=== PATIENT | female | born 1970 | race Caucasian/White ===

== ENCOUNTER 2019-05-24 15:35 | Inpatient (IN) | payer MEDICAID ==
[~2019-05-24] VITALS: Ht 157.5 cm; Wt 86.6 kg
[2019-05-24 15:35] VITALS: BP_SYST 239
--- NOTE | 2019-05-24 15:35 | NUR ---
BROUGHT BACK TO BED #2 AND TRIAGED. REPORT GIVEN TO RADHA
--- NOTE | 2019-05-24 16:00 | NUR ---
ER Dr. Thomas at bedside examining patient.
[2019-05-24] MEDS ORDERED: MORPHINE 4 MG/ML INJ. SYRINGE IVP ONE ×2 (16:15→18:15)
[2019-05-24] MEDS ORDERED: DIPHENHYDRAMINE INJ 50 MG/ML VIAL IVP ONE (16:15)
[2019-05-24 16:27] LABS: BASOPHILS % (AUTO) 0.2 % (0.0-2.0); EOSINOPHILS # (AUTO) 0.1 K/uL (0.0-0.4); HEMOGLOBIN 17.1 g/dL (12.0-16.0); MONOCYTES # (AUTO) 0.4 K/uL (0.0-1.0)
[2019-05-24 16:33] LABS: EOSINOPHILS % (AUTO) 0.4 % (0.0-4.0); HEMATOCRIT 49.7 % (36-48); LYMPHOCYTES % (AUTO) 7.3 % (20.5-51.5); MEAN CORPUSCULAR HEMOGLOBIN 32 pg (27-31); MEAN CORPUSCULAR HGB CONC 34 % (32-36); MEAN CORPUSCULAR VOLUME 94 fL (79.0-98.0); NEUTROPHILS # (AUTO) 12.5 K/uL (1.8-7.7); NEUTROPHILS % (AUTO) 89.1 % (40.0-70.0); PLATELET COUNT (AUTO) 256 K/uL (130-430); RED BLOOD CELL COUNT(AUTO) 5.29 MIL/uL (4.2-6.2); RED CELL DISTRIBUTION WIDTH 12.3 % (9.0-15.0)
[2019-05-24 16:36] LABS: PROTHROMBIN TIME 10.1 SECS (9.5-12.5)
[2019-05-24 16:37] LABS: CREATININE 1.01 mg/dL (0.55-1.30); POTASSIUM 3.1 mmol/L (3.5-5.1)
[2019-05-24] MEDS ORDERED: DIPHENHYDRAMINE INJ 50 MG/ML VIAL ONE (16:44)
[2019-05-24 16:46] LABS: ALBUMIN 4.2 g/dL (3.4-4.8); TOTAL BILIRUBIN 1.1 mg/dL (0.0-1.0)
[2019-05-24] MEDS ORDERED: MORPHINE 4 MG/ML INJ. SYRINGE ONE (16:52)
[2019-05-24] MEDS ORDERED: POTASSIUM CHLORIDE 40 MEQ in NS 250 ML IV ONE (17:30)
[2019-05-24] MEDS ORDERED: NACL 0.9% 1,000 ML IV ONE (17:30)
--- NOTE | 2019-05-24 17:39 | NUR ---
Medicated per MD orders. IVF infusing with no s/s of infiltration at this time. Will cont to monitor
[2019-05-24] MEDS ORDERED: KCL 20 mEq in 100 mL (PREMIX) 200 ML IV ONE (17:44)
[2019-05-24] MEDS ORDERED: PIPERACILLIN/TAZO 3.375 GM in NS 50 ML IV ONE (17:45)
[2019-05-24] MEDS ORDERED: METOPROLOL TARTRATE 5 MG/5 ML VIAL IVP ONE (17:45)
[2019-05-24] MEDS ORDERED: ONDANSETRON HCL 4 MG/2 ML VIAL IVP ONE ×2 (17:45→19:15)
--- NOTE | 2019-05-24 17:52 | NUR ---
Pt vomited on floor, greenish yellow, watery. notifed. Orders recieved.
--- NOTE | 2019-05-24 17:54 | NUR ---
Pt unable to urinate in bed pain. notified.
[2019-05-24] MEDS ORDERED: PIPERACILLIN/TAZOBACTAM 3.375 GM/VIAL (ZOSYN) IV ONE (17:56)
--- NOTE | 2019-05-24 18:06 | NUR ---
Medicated for nausea/vomiting and hypertension per MD orders. IVPB Zosyn infusing to lt wrist with no s/sx of infiltration.
--- NOTE | 2019-05-24 18:28 | NUR ---
Pt states that she doesn't know the name of the medication that she takes. Attempted to call [facility] in [place] and they are closed. Advised the daughter to bring her RX bottles when she returns, verbalized understanding.
--- NOTE | 2019-05-24 18:38 | NUR ---
# 14 FR In and Out catheter with use of sterile technique. Immediate return of 320 ml roldan urine noted. Urine sample collected and sent to lab. Pt tolerated procedure well. Patient unable to toilet self.
[2019-05-24 18:46] LABS: BILIRUBIN,URINE 1+ (NEGATIVE); BLOOD, URINE NEGATIVE (NEGATIVE); CLARITY/URINE SL CLOUDY (CLEAR); COLOR,URINE YELLOW (YELLOW); GLUCOSE,URINE NEGATIVE (NEGATIVE); KETONES,URINE 1+ (NEGATIVE); LEUKOCYTE ESTERASE ,URINE NEGATIVE (NEGATIVE); NITRITE, URINE NEGATIVE (NEGATIVE); PH,URINE 5.5 (5.0-8.0); PROTEIN URINE TRACE (NEGATIVE); UROBILINOGEN,URINE 0.2 (0.2-1.0)
--- NOTE | 2019-05-24 18:48 | NUR ---
pt to bring pt's med to complete med recon
[2019-05-24] MEDS ORDERED: DILTIAZEM HCL 25 MG/5 ML VIAL IVP ONE (19:00)
--- NOTE | 2019-05-24 19:06 | NUR ---
pt will be admitted under the care of Dr. Morse to room 116-b. Katie lopez/ Barbara GUZMAN
--- NOTE | 2019-05-24 19:07 | NUR ---
care endorsed to Julio C GANDARA
[2019-05-24] MEDS ORDERED: MORPHINE 2 MG/ML INJ. SYRINGE IVP ONE (19:15)
[2019-05-24] MEDS ORDERED: cloNIDine HCL 0.1 MG TABLET PO ONE (19:30)
[2019-05-24 19:34] LABS: BARBITURATE, URINE NEGATIVE (NEG <=200); BENZODIAZEPINE, URINE NEGATIVE (NEG <=150); CANNABINOID, URINE NEGATIVE (NEG <=50); COCAINE, URINE NEGATIVE (NEG <=150); METHAMPHETAMINES SCREEN,URINE NEGATIVE (NEG <=500); OPIATE, URINE POSITIVE (NEG <=100); PHENCYCLIDINE SCREEN,URINE NEGATIVE (NEG <=25); UR TRICYCLIC ANTIDEPRESSANTS NEGATIVE (NEG <=300); URINE AMPHETAMINE NEGATIVE (NEG <=500); URINE METHADONE NEGATIVE (NEG <=200); URINE OXYCODONE SCREEN NEGATIVE (NEG <=100); URINE PROPOXYPHENE SCREEN NEGATIVE (NEG <=300)
[2019-05-24] MEDS: D5/0.45 NS 1,000 ML IV SCH (20:08)
[2019-05-24] MEDS ORDERED: KCL 20 mEq in 100 mL (PREMIX) 100 ML IV ONE (20:11)
--- NOTE | 2019-05-24 20:27 | NUR ---
Pt's family showed pictures of home meds of Lasix and Propranolol without dosages. Dr. Taylor and enforcement manager aware
--- NOTE | 2019-05-24 20:31 | NUR ---
notifying Dr. Morse by page to address Pt's SBP above 200 and continuing N/V
--- NOTE | 2019-05-24 21:06 | NUR ---
Informed Dr. De La Paz of pt.'s persistent elevated B/P, currently at 221/128 and that two pages have been placed to notify admitting physician, Dr. Morse regarding status. Dr. De La Paz states that pt has not been signed out to him and that he knows nothing about pt and to continue to contact admitting physician for orders to tx B/P.
--- NOTE | 2019-05-24 21:38 | NUR ---
Spoke with Dr. Morse regarding pt.'s sustained B/P in 200's/120's. TO to given Labetolol 10 mg IVP now.
[2019-05-24] MEDS ORDERED: LABETALOL 100 MG/ 20ML VIAL ONE (21:57)
[2019-05-24] MEDS ORDERED: LABETALOL 100 MG/ 20ML VIAL IVP SCH (22:00)
[2019-05-24] MEDS ORDERED: cloNIDine HCL 0.1 MG TABLET PO PRN (22:15)
--- NOTE | 2019-05-24 22:20 | NUR ---
Transfer to Telemetry via ACLS protocol. Licensed nurse present. IV present no signs or symptoms of infiltration.
--- NOTE | 2019-05-24 22:20 | NUR ---
Patient will be admitted to care of Dr. Morse. Admitted to Tele unit. Will go to room 116. Belongings list completed. Complete and up to date summary report printed. Report to be given at bedside with opportunity for questions.
--- NOTE | 2019-05-24 22:27 | NUR ---
ADMIT NOTE Received pt from ER to the floor with a diagnosis of acute pancreatitis. Admission process initiated. patient oriented to pain management, safety and call light-teach back done.
[2019-05-24 22:40] VITALS: BP_SYST 162
[2019-05-24] MEDS ORDERED: PROP10TA10 PO (22:53)
[2019-05-24] MEDS: ONDANSETRON HCL 4 MG/2 ML VIAL IVP PRN (23:03)
[2019-05-24] MEDS ORDERED: LORazepam 2 MG/ML VIAL IVP PRN (23:15)
[2019-05-24] MEDS ORDERED: MORPHINE 2 MG/ML INJ. SYRINGE IVP PRN (23:15)
[2019-05-24] MEDS ORDERED: ONDANSETRON HCL 4 MG/2 ML VIAL IVP PRN (23:15)
--- NOTE | 2019-05-24 23:16 | NUR ---
-PAGED PAGED CHITO MULTANI AT [phone] SPOKE WITH LIVAN.
--- NOTE | 2019-05-24 23:20 | NUR ---
CONSULTATION PAGED REASON FOR CONSULTATION:PANCREATITIS WAS CONSULT CALLED?Y PERSON WHO WAS NOTIFIED:SHAWN CONSULTING PHYSICIAN:CRYSTAL GORMAN (RUTH ANN RICKS SKIN SPECIALIST) METAL TANK ERECTOR SPECIALTY:GI METAL TANK ERECTOR PHONE NUMBER:[phone] ORDERING PHYSICIAN:CHITO MULTANI
--- NOTE | 2019-05-24 23:23 | NUR ---
CONSULTATION PAGED REASON FOR CONSULTATION:HYPERTENSION WAS CONSULT CALLED?Y PERSON WHO WAS NOTIFIED:SHANKAR CONSULTING PHYSICIAN:BECYK MULTANI ASSISTANT MANAGER/EMBALMER SPECIALTY:CARDIO ASSISTANT MANAGER/EMBALMER PHONE NUMBER:[phone] ORDERING PHYSICIAN:CHITO MULTANI
--- NOTE | 2019-05-24 23:30 | NUR ---
CONSULTATION PAGED REASON FOR CONSULTATION:LEUKOCYTOSIS WAS CONSULT CALLED?Y PERSON WHO WAS NOTIFIED:TAMI CONSULTING PHYSICIAN:SELINA MARTE APPLICATION DEVELOPMENT DIRECTOR SPECIALTY:ID APPLICATION DEVELOPMENT DIRECTOR PHONE NUMBER:[phone] ORDERING PHYSICIAN:CHITO MULTANINORMAN [facility] FAXED
[2019-05-24] MEDS: MORPHINE 4 MG/ML INJ. SYRINGE IVP PRN (23:47)
--- NOTE | 2019-05-24 23:47 | NUR ---
PAIN Patient complained of 10/10 abdominal pain. PRN medication administered.
[2019-05-25] VITALS (10 sets, daily range): BP systolic 171–212
[2019-05-25] MEDS: LABETALOL 100 MG/ 20ML VIAL IVP PRN ×3 (00:23→08:57)
--- NOTE | 2019-05-25 01:41 | NUR ---
ROUNDS Patient in bed, sleeping. No s/s of acute distress noted. Breathing even and unlabored. IVF infusing well. Call light with patient. Bed alarm on. Will continue to monitor.
--- NOTE | 2019-05-25 02:54 | NUR ---
seen by dr. maría sánchez md if pt can have protonix. md order protonix ivp 40 mg daily and one dose now.
[2019-05-25] MEDS ORDERED: PANTOPRAZOLE SODIUM 40 MG/VIAL (PROTONIX) IVP SCH ×2 (03:00)
[2019-05-25] MEDS: MORPHINE 4 MG/ML INJ. SYRINGE IVP PRN ×4 (03:45→22:59)
--- NOTE | 2019-05-25 03:45 | NUR ---
ROUNDS/PAIN/MED EDUCATION Patient complained of 10/10 abdominal pain and nausea. PRN medications administered at this time. Breathing is even and unlabored. IVF infusing well. Patient educated on side effects of Morphine, instructed to call for assistance when ambulating, patient verbalized understanding. . Call light with patient. Bed alarm on. Will continue to monitor.
[2019-05-25] MEDS: ONDANSETRON HCL 4 MG/2 ML VIAL IVP PRN (03:46)
[2019-05-25] MEDS ORDERED: PIPERACILLIN/TAZOBACTAM 3.375 GM/VIAL (ZOSYN) IV ONE (05:24)
--- NOTE | 2019-05-25 05:30 | NUR ---
BSC Patient wanted to void, patient stated "I don't think I can make it to the bathroom because of the pain". RN suggested bed beckwith or bedside commode. Patient preferred the BSC. BSC placed at this time, patient voided, tolerated well. All needs met. Call light with patient. Bed alarm on. Will continue to monitor.
[2019-05-25] MEDS: hydrALAZINE HCL 25 MG TABLET PO SCH ×3 (06:00→23:02)
[2019-05-25] MEDS: D5/0.45 NS 1,000 ML IV SCH ×3 (06:31→20:08)
[2019-05-25] MEDS: PIPERACILLIN/TAZO 3.375/DEX-IS 50 ML IV SCH ×4 (06:31→23:15)
--- NOTE | 2019-05-25 06:54 | NUR ---
CLOSING NOTES Patient in bed sleeping at this time. No s/s of acute distress noted. Breathing is even and unlabored. BP is still high, last take at 0630 it was 187/114. PRN medication administered. IVF infusing well, IV site shows no signs of infiltration or infection noted. All needs met throughout shift. Fall and safety precautions maintained throughout shift. Will continue to monitor until patient care is endorsed to oncoming dayshift nurse.
[2019-05-25 07:24] LABS: BASOPHILS % (AUTO) 0.1 % (0.0-2.0); HEMATOCRIT 47.7 % (36-48); HEMOGLOBIN 16.6 g/dL (12.0-16.0); LYMPHOCYTES # (AUTO) 0.9 K/uL (1.0-5.5); LYMPHOCYTES % (AUTO) 6.6 % (20.5-51.5); MEAN CORPUSCULAR HEMOGLOBIN 33 pg (27-31); MEAN CORPUSCULAR HGB CONC 35 % (32-36); MEAN CORPUSCULAR VOLUME 93 fL (79.0-98.0); MONOCYTES # (AUTO) 0.4 K/uL (0.0-1.0); MONOCYTES % (AUTO) 2.7 % (1.7-9.3); NEUTROPHILS # (AUTO) 12.2 K/uL (1.8-7.7); NEUTROPHILS % (AUTO) 90.6 % (40.0-70.0); PLATELET COUNT (AUTO) 173 K/uL (130-430); RED BLOOD CELL COUNT(AUTO) 5.11 MIL/uL (4.2-6.2); RED CELL DISTRIBUTION WIDTH 12.6 % (9.0-15.0); WHITE BLOOD COUNT (AUTO) 13.4 K/uL (4.8-10.8)
[2019-05-25 07:41] LABS: ALBUMIN 3.2 g/dL (3.4-4.8); CALCIUM 8.2 mg/dL (8.4-11.0); CREATININE 0.98 mg/dL (0.55-1.30); POTASSIUM 3.5 mmol/L (3.5-5.1); TOTAL BILIRUBIN 1.2 mg/dL (0.0-1.0)
--- NOTE | 2019-05-25 07:55 | NUR ---
OPENING NOTE RECEIVED PATIENT AWAKE IN BED. ALERT AND ORIENTED. NO ACUTE DISTRESS. C/O PAIN TO BACK AND ABDOMEN; WILL MEDICATE FOR PAIN. SKIN WARM AND DRY TO TOUCH. DISCUSSED PLAN OF CARE. BED IN LOW AND LOCKED POSITION. SIDERAIL UPX3. BEDSIDE COMMODE AT BEDSIDE. ALL NEEDS MET. SISTER AT BEDSIDE. CONT TO MONITOR
[2019-05-25] MEDS: PANTOPRAZOLE SODIUM 40 MG/VIAL (PROTONIX) IVP SCH (08:55)
--- NOTE | 2019-05-25 10:00 | NUR ---
PAGED DR.Y BASURTO FOR ELEVATED BP; AWAITING FOR CALL BACK
[2019-05-25 10:25] LABS: CHOLESTEROL 136 mg/dL (<200); HDL CHOLESTEROL 77 mg/dL (>55); LDL CHOLESTEROL 45 mg/dL (<100); TRIGLYCERIDES 70 mg/dL (30-150)
[2019-05-25] MEDS ORDERED: ONDANSETRON HCL 4 MG/2 ML VIAL IVP PRN (11:45)
[2019-05-25] MEDS ORDERED: LABETALOL 100 MG/ 20ML VIAL IVP ONE (12:00)
--- NOTE | 2019-05-25 12:05 | NUR ---
DR.PALIWAL MULTANI AT NURSES STATION AND REPORTED PATIENT'S BP IS 212/119. LABETALOL WAS ADMINISTERED AT 0900 FOR BP OF 194/109. MORPHINE WAS ALSO ADMINISTERED FOR PAIN. RECEIVED NEW ORDER FOR LABETALOL 10MG IVPBX1 AND CLONIDINE PRN; ORDER CLARIFIED AND VERIFIED
--- NOTE | 2019-05-25 14:30 | NUR ---
PAGED DR. Arjun BASURTO [phone] FOR BP; AWAITING FOR CALL BACK
[2019-05-25] MEDS: cloNIDine HCL 0.1 MG TABLET PO PRN (14:37)
[2019-05-25] MEDS: HYDROmorphone 2 MG/ML VIAL IVP PRN ×2 (14:38→20:03)
--- NOTE | 2019-05-25 17:25 | NUR ---
DR.Y BASURTO REPORTED TO MD PATIENT'S BP IS ELEVATED ALL DAY AND HAS BEEN REPORTED TO DR.A BASURTO. AT THIS TIME BP IS 186/109. PER MD CALLING SERVICE NOT WORKING AND TO CALL HIM DIRECTLY AT [phone] RECEIVED NEW ORDER FOR METOPROLOL 50MG PO BID AND X1 DOSE NOW; AMLODIPINE 10MG PO BID AND X1 DOSE NOW; VASOTEC 5 MG IVP Q6PRN; D/C LABETALOL. ALL ORDERS CLARIFIED AND VERIFIED WITH AND CARRIED OUT
[2019-05-25] MEDS ORDERED: ENALAPRILAT DIHYDRATE 1.25 MG/ML VIAL IVP PRN (17:30)
[2019-05-25] MEDS ORDERED: METOPROLOL TARTRATE 50 MG TABLET PO ONE (17:30)
[2019-05-25] MEDS ORDERED: amLODIPine BESYLATE 10 MG TABLET PO ONE (17:30)
--- NOTE | 2019-05-25 19:34 | NUR ---
CLOSING NOTE PATIENT IS STABLE. NO ACUTE DISTRESS. NO SOB. RESPIRATION EVEN AND UNLABORED. SKIN WARM AND DRY TO TOUCH. IV INTACT AND PATENT; RENETTA IVF. ALL NEEDS MET. BSC AT BEDSIDE. BED IN LOW AND LOCKED POSITION. SIDERAIL UPX3. CALL LIGHT IN REACH. ENDORSED TO SULAIMAN GANDARA
--- NOTE | 2019-05-25 19:50 | NUR ---
INITIAL NOTES PATIENT IS LAYING IN BED AND STABLE. PATIENTS FAMILY IS BY BEDSIDE. NO SIGNS OR SYMPTOMS OF RESPIRATORY FAILURE NOTED. CALL LIGHT IS WITHIN REACH. PATIENT SUCCESSFUL DEMONSTRATES USAGE OF CALL LIGHT PLAN OF CARE IS DISCUSSED WITH PATIENT AND FAMILY AT THIS TIME. FALL, SAFETY, AND ASPIRATION PRECAUTION WILL BE PLACED THROUGHOUT THE SHIFT.
[2019-05-25] MEDS: METOPROLOL TARTRATE 50 MG TABLET PO SCH (20:07)
[2019-05-26 00:26] VITALS: BP_SYST 177
[2019-05-26] MEDS: cloNIDine HCL 0.1 MG TABLET PO PRN ×3 (01:05→20:26)
[2019-05-26] MEDS: HYDROmorphone 2 MG/ML VIAL IVP PRN ×5 (03:12→20:27)
[2019-05-26] MEDS: D5/0.45 NS 1,000 ML IV SCH ×3 (03:14→16:46)
[2019-05-26] MEDS: PIPERACILLIN/TAZO 3.375/DEX-IS 50 ML IV SCH ×3 (05:16→17:20)
[2019-05-26] MEDS: hydrALAZINE HCL 25 MG TABLET PO SCH ×3 (05:19→23:22)
--- NOTE | 2019-05-26 06:50 | NUR ---
CLOSING NOTES PATIENT IS RESTING IN BED AND IS STABLE. FAMILY IS AT BEDSIDE. NO SIGNS OR SYMPTOMS OF RESPIRATORY DISTRESS DURING THE SHIFT. FALL, SAFETY, RESPIRATORY, AND ASPIRATION PRECAUTION HAS BEEN PLACED THROUGHOUT THE SHIFT. BED IS LOCKED, ALARMED, AND AT THE LOWEST POSITION. CALL LIGHT IS WITHIN REACH. WILL CONTINUE TO MONITOR UNTIL BED SIDE REPORT IS GIVEN TO AM NURSE AT BED SIDE.
[2019-05-26 07:11] LABS: BASOPHILS % (AUTO) 0.1 % (0.0-2.0); EOSINOPHILS # (AUTO) 0.1 K/uL (0.0-0.4); EOSINOPHILS % (AUTO) 0.5 % (0.0-4.0); HEMATOCRIT 40.2 % (36-48); HEMOGLOBIN 13.8 g/dL (12.0-16.0); LYMPHOCYTES % (AUTO) 6.4 % (20.5-51.5); MEAN CORPUSCULAR HEMOGLOBIN 32 pg (27-31); MEAN CORPUSCULAR HGB CONC 34 % (32-36); MEAN CORPUSCULAR VOLUME 94 fL (79.0-98.0); MONOCYTES # (AUTO) 0.7 K/uL (0.0-1.0); MONOCYTES % (AUTO) 4.7 % (1.7-9.3); NEUTROPHILS # (AUTO) 13.6 K/uL (1.8-7.7); NEUTROPHILS % (AUTO) 88.3 % (40.0-70.0); PLATELET COUNT (AUTO) 147 K/uL (130-430); RED BLOOD CELL COUNT(AUTO) 4.28 MIL/uL (4.2-6.2); RED CELL DISTRIBUTION WIDTH 12.3 % (9.0-15.0); WHITE BLOOD COUNT (AUTO) 15.4 K/uL (4.8-10.8)
[2019-05-26 07:36] LABS: POTASSIUM 3.4 mmol/L (3.5-5.1)
[2019-05-26 07:45] VITALS: BP_SYST 183
--- NOTE | 2019-05-26 07:46 | NUR ---
OPENING NOTE RECEIVED PATIENT AWAKE IN BED. PATIENT C/O 10/10 ABDOMINAL PAIN; MEDICATED WITH DILAUDID ORDERED. ROOM AIR. NO ACUTE DISTRESS. SKIN WARM AND DRY. IV INTACT AND PATENT; RENETTA IVF. BEDSIDE COMMODE AT BEDSIDE. BED IN LOW AND LOCKED POSITION. SIDERAIL UPX3. PATIENT REFUSE BED ALARM. DISCUSSED PLAN OF CARE. ALL NEEDS MET. CALL LIGHT IN REACH. CONT TO MONITOR
[2019-05-26 07:51] LABS: ALBUMIN 2.9 g/dL (3.4-4.8); CALCIUM 8.2 mg/dL (8.4-11.0); CREATININE 0.79 mg/dL (0.55-1.30); TOTAL BILIRUBIN 0.8 mg/dL (0.0-1.0)
[2019-05-26 09:31] LABS: ERYTHROCYTE SEDIMENTATION RATE 28 MM/HR (0-20)
[2019-05-26 09:40] VITALS: BP_SYST 174
[2019-05-26] MEDS: amLODIPine BESYLATE 10 MG TABLET PO SCH (09:42)
[2019-05-26] MEDS: PANTOPRAZOLE SODIUM 40 MG/VIAL (PROTONIX) IVP SCH (09:42)
[2019-05-26] MEDS: METOPROLOL TARTRATE 50 MG TABLET PO SCH ×2 (09:43→22:04)
--- NOTE | 2019-05-26 09:45 | NUR ---
NOTE ALL DUE MEDS ADMINISTERED ORDERED, RENETTA WELL. CONT TO MONITOR
[2019-05-26 10:30] VITALS: BP_SYST 158
--- NOTE | 2019-05-26 12:29 | NUR ---
Dietitian Recommendations 1. Continue clear liquid diet. Clear liquid diet comes standard with Ensure Clear with meals which provides 200kcal, 7gPr per serving. 2. Encourage PO intake as tolerated. 3. When medically feasible, recommend 2GM Na diet. Please see Nutrition Assessment for further details. LT, RD
--- NOTE | 2019-05-26 12:30 | NUR ---
NOTE PATIENT WITH DECREASED APPETITE. OFFERED PATIENT ICE CHIPS, RENETTA WELL. WILL CONT TO MONITOR
--- NOTE | 2019-05-26 13:14 | NUR ---
REPORTED TO CRITICAL LAB VALUES BUN 153 CREAT 10.33 LIPASE 13521 NO NEW ORDER AT THIS TIME Addendum: 05/26/19 at 1556 by Gisela Pollack RN WRONG PATIENT Addendum: 05/26/19 at 1556 by Gisela Pollack RN DISREGARD; WRONG PATIENT
--- NOTE | 2019-05-26 14:00 | NUR ---
SEEN AND EXAMINED BY DR. Marko BASURTO AT BEDSIDE
[2019-05-26] MEDS ORDERED: KCL 20 mEq in NS 1000 mL 1,000 ML IV SCH (14:15)
[2019-05-26] MEDS: LORazepam 2 MG/ML VIAL IVP PRN ×2 (14:48→22:03)
--- NOTE | 2019-05-26 14:50 | NUR ---
NOTE PATIENT ANXIOUS. VITAL SIGN STABLE. ATIVAN ADMINISTERED ORDERED, RENETTA WELL. TEACHING DONE ON MEDICATION. ALL NEEDS MET. CONT TO MONITOR
--- NOTE | 2019-05-26 16:45 | NUR ---
NOTE PATIENT ASLEEP; AROUSABLE. NO ACUTE DISTRESS. NO SOB. DAUGHTER AT BEDSIDE. ALL NEEDS MET. CONT TO MONITOR. CALL LIGHT IN REACH
[2019-05-26] MEDS ORDERED: POTASSIUM CHLORIDE 20 MEQ in NS 250 ML IV ONE (17:00)
[2019-05-26 17:27] VITALS: BP_SYST 154
--- NOTE | 2019-05-26 17:35 | NUR ---
note PATIENT C/O PAIN TO ABDOMEN 10/10. VITAL SIGN STABLE. DILAUDID ADMINISTERED ORDERED, RENETTA WELL. ALL NEEDS MET. CONT TO MONITOR. CALL LIGHT IN REACH
--- NOTE | 2019-05-26 18:54 | NUR ---
CLOSING NOTE PATIENT RESTING IN BED; AROUSABLE. NO ACUTE DISTRESS. ALL NEEDS MET. TO BE NPO AFTER MIDNIGHT FOR MRI-MRCP TOMORROW. CALL LIGHT IN REACH. CONT TO MONITOR. WILL ENDORSE TO ONCOMING SHIFT
--- NOTE | 2019-05-26 19:30 | NUR ---
opening note patient awake, aox4, resting in bed. reports never completely pain free, the lowest is usually a six. Bed is locked in lowest position, call light w/in reach. bedside commode at bedside
[2019-05-26 20:00] VITALS: BP_SYST 191
--- NOTE | 2019-05-26 20:39 | NUR ---
C/O PAIN, INCREASED B/P Patient reporting pain 10/10 and administered Dilaudid for severe pain as ordered. B/P 191/94 and administered clonidine prn as ordered, will follow up.
[2019-05-27] MEDS: HYDROmorphone 2 MG/ML VIAL IVP PRN ×5 (00:28→21:39)
[2019-05-27 00:30] VITALS: BP_SYST 172
--- NOTE | 2019-05-27 00:30 | NUR ---
C/O Patient reporting pain 10/10 and administered Dilaudid for severe pain as ordered.
[2019-05-27] MEDS: PIPERACILLIN/TAZO 3.375/DEX-IS 50 ML IV SCH ×4 (00:36→17:12)
[2019-05-27] MEDS: MORPHINE 4 MG/ML INJ. SYRINGE IVP PRN ×2 (02:35→09:04)
--- NOTE | 2019-05-27 02:35 | NUR ---
C/O PAIN Patient reporting pain 8/10 and administered Morphine for severe pain as ordered.
[2019-05-27] MEDS: D5/0.45 NS 1,000 ML IV SCH ×4 (02:42→19:00)
[2019-05-27] MEDS: cloNIDine HCL 0.1 MG TABLET PO PRN (02:55)
--- NOTE | 2019-05-27 05:55 | NUR ---
C/O PAIN, antibiotic Patient reporting pain 10/10 and administered Dilaudid for severe pain as ordered. administered antibiotic and scheduled hydralazine for elevated B/P
[2019-05-27] MEDS: hydrALAZINE HCL 25 MG TABLET PO SCH ×3 (05:56→21:42)
[2019-05-27 07:22] LABS: BASOPHILS % (AUTO) 0.1 % (0.0-2.0); EOSINOPHILS # (AUTO) 0.2 K/uL (0.0-0.4); EOSINOPHILS % (AUTO) 1.6 % (0.0-4.0); HEMATOCRIT 38.9 % (36-48); HEMOGLOBIN 13.6 g/dL (12.0-16.0); LYMPHOCYTES # (AUTO) 0.9 K/uL (1.0-5.5); LYMPHOCYTES % (AUTO) 8.3 % (20.5-51.5); MEAN CORPUSCULAR HEMOGLOBIN 33 pg (27-31); MEAN CORPUSCULAR HGB CONC 35 % (32-36); MEAN CORPUSCULAR VOLUME 94 fL (79.0-98.0); MONOCYTES # (AUTO) 0.4 K/uL (0.0-1.0); NEUTROPHILS # (AUTO) 9.2 K/uL (1.8-7.7); PLATELET COUNT (AUTO) 152 K/uL (130-430); RED BLOOD CELL COUNT(AUTO) 4.16 MIL/uL (4.2-6.2); RED CELL DISTRIBUTION WIDTH 12.4 % (9.0-15.0); WHITE BLOOD COUNT (AUTO) 10.7 K/uL (4.8-10.8)
[2019-05-27 07:43] LABS: ALBUMIN 2.9 g/dL (3.4-4.8); C-REACTIVE PROTEIN QUANT 5.8 mg/dL (0-0.5); CALCIUM 8.3 mg/dL (8.4-11.0); CREATININE 0.7 mg/dL (0.55-1.30); POTASSIUM 3.3 mmol/L (3.5-5.1); TOTAL BILIRUBIN 0.7 mg/dL (0.0-1.0)
--- NOTE | 2019-05-27 08:00 | NUR ---
PATIENT IS RESTING QUIETLY IN BED AT THIS TIME. PT IS ALERT AND ORIENTED X4. PATIENT REPORTS A 10/10 LEVEL OF ABDOMINAL PAIN AND IS REQUESTING PAIN MEDICATION. PATIENT WILL BE ADMINISTERED PRN PAIN MEDICATION PER MD ORDERS. PATIENT'S VSS AT THIS TIME, NO SIGNS OF DISTRESS NOTED. PT'S CALL LIGHT IS WITHIN REACH, BED IN LOWEST POSITION. PT HAS A BEDSIDE COMMODE IN PLACE. PATIENT REMAINS NPO IN PREPARATION FOR MRCP THIS A.M. WILL CONTINUE TO MONITOR AND TREAT PT.
--- NOTE | 2019-05-27 08:00 | NUR ---
closing note Patient resting in bed. She is aware that she is NPO and asked for ice chips, I let her know it is not allowed. Endorsed bedside report. IVF infusing well. Bed safety precautions in place and call light w/in reach.
[2019-05-27 08:05] LABS: ERYTHROCYTE SEDIMENTATION RATE 32 MM/HR (0-20)
[2019-05-27] MEDS: METOPROLOL TARTRATE 50 MG TABLET PO SCH ×2 (09:11→21:00)
[2019-05-27] MEDS: amLODIPine BESYLATE 10 MG TABLET PO SCH (09:12)
[2019-05-27] MEDS: PANTOPRAZOLE SODIUM 40 MG/VIAL (PROTONIX) IVP SCH (09:18)
--- NOTE | 2019-05-27 12:00 | NUR ---
PATIENT ESCORTED TO MRI BY BOX REPAIRER VIA WHEELCHAIR TO HAVE MRCP PROCEDURE DONE. PT A&OX4 WITH NO SIGNS OF DISTRESS NOTED UPON PT'S DEPARTURE FROM THE UNIT.
--- NOTE | 2019-05-27 14:10 | NUR ---
Assumed Care: Received report from registry Jennifer. Patient c/o abdominal pain.To follow pain meds. Vital signs taken,blood pressure elevated,due po meds to be given for hypertension.No other abnormalities noted this time.
--- NOTE | 2019-05-27 14:39 | NUR ---
Pain Medications: Patient c/o abdominal pain and due iv Dilaudid given per request. No complications noted.
[2019-05-27 14:58] VITALS: BP_SYST 172
[2019-05-27 16:28] VITALS: BP_SYST 150
--- NOTE | 2019-05-27 16:29 | NUR ---
STRIKER OFF ROUNDS: DR Dawna BASURTO SEEN PATIENT IN THE ROOM. NOT IN ANY DISTRESS.
--- NOTE | 2019-05-27 16:58 | NUR ---
IV NOTES: IV INFILTRATED.REMOVED IV AT LEFT ARM,DRY GAUZE APPLIED,NO BLEEDING NOTED.RE SITED AT RIGHT FOREARM USING G#22,IV FLUIDS CONTINUE.
[2019-05-27] MEDS ORDERED: cloNIDine HCL 0.2 MG TABLET PO ONE (17:00)
[2019-05-27] MEDS: LORazepam 2 MG/ML VIAL IVP PRN ×2 (17:44→23:10)
--- NOTE | 2019-05-27 17:49 | NUR ---
Ativan iv: Patient requested for iv ativan given for agitation/anxiety. No complications this time.
--- NOTE | 2019-05-27 18:30 | NUR ---
END OF SHIFT: DAUGHTER AT THE BEDSIDE. PATIENT TRYING HER CLEAR LIQUID DIET. NO COMPLAINED OF NAUSEA/VOMITING THIS TIME. CALL LIGHT WITH IN REACH. BED LOCKED AT LOWEST POSITION. CONTINUE TO MONITOR.
[2019-05-27 20:00] VITALS: BP_SYST 139
[2019-05-28] VITALS: BP_SYST 128
[2019-05-28] MEDS: D5/0.45 NS 1,000 ML IV SCH (01:22)
[2019-05-28] MEDS: HYDROmorphone 2 MG/ML VIAL IVP PRN ×5 (01:56→20:32)
[2019-05-28 04:00] VITALS: BP_SYST 164
[2019-05-28] MEDS: LORazepam 2 MG/ML VIAL IVP PRN ×3 (04:21→21:58)
[2019-05-28] MEDS: PIPERACILLIN/TAZO 3.375/DEX-IS 50 ML IV SCH ×4 (06:00→18:00)
[2019-05-28] MEDS: cloNIDine HCL 0.2 MG TABLET PO SCH ×2 (06:00→18:00)
[2019-05-28] MEDS: hydrALAZINE HCL 25 MG TABLET PO SCH ×3 (06:00→21:50)
[2019-05-28 06:31] LABS: BASOPHILS % (AUTO) 0.3 % (0.0-2.0); EOSINOPHILS # (AUTO) 0.2 K/uL (0.0-0.4); HEMATOCRIT 36.1 % (36-48); HEMOGLOBIN 12.5 g/dL (12.0-16.0); LYMPHOCYTES # (AUTO) 0.9 K/uL (1.0-5.5); LYMPHOCYTES % (AUTO) 16.5 % (20.5-51.5); MEAN CORPUSCULAR HEMOGLOBIN 33 pg (27-31); MEAN CORPUSCULAR HGB CONC 35 % (32-36); MEAN CORPUSCULAR VOLUME 94 fL (79.0-98.0); MONOCYTES # (AUTO) 0.5 K/uL (0.0-1.0); NEUTROPHILS # (AUTO) 3.9 K/uL (1.8-7.7); NEUTROPHILS % (AUTO) 70.2 % (40.0-70.0); PLATELET COUNT (AUTO) 170 K/uL (130-430); RED BLOOD CELL COUNT(AUTO) 3.85 MIL/uL (4.2-6.2); RED CELL DISTRIBUTION WIDTH 12.4 % (9.0-15.0); WHITE BLOOD COUNT (AUTO) 5.6 K/uL (4.8-10.8)
[2019-05-28 06:46] LABS: C-REACTIVE PROTEIN QUANT 1.9 mg/dL (0-0.5); CALCIUM 8.1 mg/dL (8.4-11.0); CREATININE 0.72 mg/dL (0.55-1.30)
[2019-05-28 08:00] VITALS: BP_SYST 142
--- NOTE | 2019-05-28 08:00 | NUR ---
RN Rounds; Received patient alert and oriented X4, up to the BSC independently. C/O 02/09. Vital signs stable. Assessment and Vital signs to be documented. Care plan reviewed. Safety measures in place. Call light in reach. Patient able to make her needs known.
[2019-05-28 08:26] LABS: POTASSIUM 2.9 mmol/L (3.5-5.1)
[2019-05-28 08:30] LABS: ERYTHROCYTE SEDIMENTATION RATE 28 MM/HR (0-20)
[2019-05-28] MEDS ORDERED: KCL 20 mEq in 100 mL (PREMIX) 200 ML IV ONE (09:30)
[2019-05-28] MEDS: PANTOPRAZOLE SODIUM 40 MG/VIAL (PROTONIX) IVP SCH (09:47)
[2019-05-28] MEDS: METOPROLOL TARTRATE 50 MG TABLET PO SCH ×2 (09:48→20:35)
[2019-05-28] MEDS: amLODIPine BESYLATE 10 MG TABLET PO SCH (09:49)
[2019-05-28] MEDS: D5NS 1,000 ML IV SCH ×2 (09:54→19:30)
[2019-05-28 17:34] LABS: ANTI NUCLEAR AB WITH REFLEX Positive (Negative)
--- NOTE | 2019-05-28 19:30 | NUR ---
Bedside report received from day shift nurse. Pt is fully awake and alert. No acute distress noted at this time. Fall and safety precautions are in place.
--- NOTE | 2019-05-28 19:32 | NUR ---
RN Rounds: Patient alert and oriented X4. IV infiltrated. Endorsed 1800 medications to PM RN. Report given. Safety measures in place. Call light in reach.
--- NOTE | 2019-05-28 19:50 | NUR ---
New IV line was started in left wrist with Angiocath 22G after one attempt. IVF was resumed as ordered by . Angiocath in RFA was removed with the Angiocath intact.
[2019-05-28 20:00] VITALS: BP_SYST 141
--- NOTE | 2019-05-28 20:32 | NUR ---
Pt c/o 9/10 pain in her abdomen, back and both sides. Dilaudid 2mg was given IV per pt's request with some relief. Pt declined bed alarm. Pt was instructed to call for assistance before getting out of bed if she feels dizzy or drowsy and pt verbalized understanding. Call light is with pt and bed is in the lowest and locked positions. IVF of D5NS is infusing well in LW at 100ml/hr.
[2019-05-28] MEDS ORDERED: POTASSIUM CHLORIDE 20 MEQ TAB.PRT.SR PO ONE (21:00)
--- NOTE | 2019-05-28 21:58 | NUR ---
Pt c/o anxiety. Ativan 1mg was given IV per pt's request with relief. Pt declined bed alarm. Pt was instructed to call for assistance before getting out of bed if she feels dizzy or drowsy and pt verbalized understanding. Call light is with pt and bed is in the lowest and locked positions. Pt's daughter is sitting in a recliner at the bedside. Pt stated her daughter will assist her in getting out of bed if she needs assistance. IVF is infusing well in LW.
--- NOTE | 2019-05-28 23:00 | NUR ---
Pt is sleeping without any distress noted. Fall and safety precautions are in place.
[2019-05-29] VITALS: BP_SYST 135
[2019-05-29] MEDS: PIPERACILLIN/TAZO 3.375/DEX-IS 50 ML IV SCH ×5 (00:09→23:41)
[2019-05-29] MEDS: HYDROmorphone 2 MG/ML VIAL IVP PRN ×6 (01:05→23:40)
--- NOTE | 2019-05-29 01:05 | NUR ---
Dilaudid 2mg was given IV per pt's request for c/o 9/10 pain in her abdomen, back and both sides. Pt declined bed alarm. Pt was instructed to call for assistance before getting out of bed if she feels dizzy or drowsy and pt verbalized understanding. Call light is with pt and bed is in the lowest and locked positions. Pt's daughter is sleeping in a recliner at the the bedside. IVF of D5NS is infusing well in LW at 100ml/hr.
[2019-05-29] MEDS: LORazepam 2 MG/ML VIAL IVP PRN ×3 (03:24→22:22)
--- NOTE | 2019-05-29 03:24 | NUR ---
Ativan 1mg was given IV per pt's request for c/o anxiety. Pt declined bed alarm. Pt was instructed to call for assistance before getting out of bed if she feels dizzy or drowsy and pt verbalized understanding. Call light is with pt and bed is in the lowest and locked positions. Pt's daughter is sleeping in a recliner at the bedside. IVF is infusing well in LW.
[2019-05-29] MEDS: D5NS 1,000 ML IV SCH ×3 (03:26→18:06)
[2019-05-29] MEDS: cloNIDine HCL 0.2 MG TABLET PO SCH ×2 (05:39→18:07)
[2019-05-29] MEDS: hydrALAZINE HCL 25 MG TABLET PO SCH ×3 (05:40→21:08)
--- NOTE | 2019-05-29 05:43 | NUR ---
Dilaudid 2mg was given IV per pt's request for c/o 8/10 pain in her abdomen, back and both sides. Pt declined bed alarm. Pt was instructed to call for assistance before getting out of bed if she feels dizzy or drowsy and pt verbalized understanding. Call light is with pt and bed is in the lowest and locked positions. Pt's daughter is sleeping in a recliner at the the bedside. IVF of D5NS is infusing well in LW at 100ml/hr.
--- NOTE | 2019-05-29 06:53 | NUR ---
Pt is awake and resting comfortably in bed. All pt's needs were attended to. IVF is infusing well in LW. Fall and safety precautions are in place. Will endorse to day shift nurse.
[2019-05-29 07:26] LABS: BASOPHILS % (AUTO) 0.6 % (0.0-2.0); EOSINOPHILS # (AUTO) 0.2 K/uL (0.0-0.4); EOSINOPHILS % (AUTO) 5.5 % (0.0-4.0); HEMATOCRIT 36.3 % (36-48); HEMOGLOBIN 12.5 g/dL (12.0-16.0); LYMPHOCYTES # (AUTO) 1.2 K/uL (1.0-5.5); LYMPHOCYTES % (AUTO) 26.6 % (20.5-51.5); MEAN CORPUSCULAR HEMOGLOBIN 32 pg (27-31); MEAN CORPUSCULAR HGB CONC 34 % (32-36); MEAN CORPUSCULAR VOLUME 94 fL (79.0-98.0); MONOCYTES # (AUTO) 0.6 K/uL (0.0-1.0); MONOCYTES % (AUTO) 12.4 % (1.7-9.3); NEUTROPHILS # (AUTO) 2.5 K/uL (1.8-7.7); NEUTROPHILS % (AUTO) 54.9 % (40.0-70.0); PLATELET COUNT (AUTO) 200 K/uL (130-430); RED BLOOD CELL COUNT(AUTO) 3.85 MIL/uL (4.2-6.2); RED CELL DISTRIBUTION WIDTH 12.4 % (9.0-15.0); WHITE BLOOD COUNT (AUTO) 4.5 K/uL (4.8-10.8)
[2019-05-29 07:48] LABS: C-REACTIVE PROTEIN QUANT 0.5 mg/dL (0-0.5); CALCIUM 7.9 mg/dL (8.4-11.0); CREATININE 0.65 mg/dL (0.55-1.30); POTASSIUM 3.6 mmol/L (3.5-5.1)
--- NOTE | 2019-05-29 07:50 | NUR ---
OPENING NOTE RECEIVED PATIENT AWAKE IN BED. ALERT AND ORIENTED. NO ACUTE DISTRESS. NO SOB. SKIN WARM AND DRY TO TOUCH. IV INTACT AND PATENT; RENETTA IVF. DISCUSSED PLAN OF CARE. ALL NEEDS MET. CALL LIGHT IN REACH. CONT OT MONITOR. CALL LIGHT IN REACH. DAUGHTER AT BEDSIDE.
[2019-05-29 08:00] VITALS: BP_SYST 139
[2019-05-29 08:36] LABS: ERYTHROCYTE SEDIMENTATION RATE 24 MM/HR (0-20)
[2019-05-29] MEDS: PANTOPRAZOLE SODIUM 40 MG/VIAL (PROTONIX) IVP SCH (09:55)
[2019-05-29] MEDS: amLODIPine BESYLATE 10 MG TABLET PO SCH (09:56)
[2019-05-29] MEDS: METOPROLOL TARTRATE 50 MG TABLET PO SCH ×2 (09:57→21:09)
--- NOTE | 2019-05-29 10:00 | NUR ---
ALL DUE MEDS ADMINISTERED ORDERED, RENETTA WELL. TEACHING DONE ON MEDICATION AND ASE. CONT TO MONITOR
--- NOTE | 2019-05-29 10:20 | NUR ---
REPORTED TO MD PATIENT HAS 2 IVF; D5NS@100 AND D5 1/2NS @150. RECEIVED ORDER TO D/C D5 1/2NS@150; CLARIFIED AND VERIFIED
[2019-05-29 12:31] VITALS: BP_SYST 147
--- NOTE | 2019-05-29 13:00 | NUR ---
NOTE PATIENT STABLE. RESTING IN BED. NOTED RISE/FALL CHEST. CONT TO MONITOR
--- NOTE | 2019-05-29 15:15 | NUR ---
NOTE PATIENT STABLE. C/O 10/10 ABD PAIN. VS STABLE. DILAUDID ADMINISTERED ORDERED, RENETTA WELL. ALL NEEDS MET. CONT TO MONITOR
--- NOTE | 2019-05-29 16:05 | NUR ---
Nutrition F/U (short note d/t high patient load) RD reviewed pt's current EMR including diet Hx, physician notes, nursing notes, pertinent labs/meds/procedures, care trends, and care activity. Subjective Info: Pt was seen resting in bed w/ daughter at bedside. Pt reported dislike of split pea soup which was served w/ her full liquid diet lunch tray today. Pt denied any N/V/C/D. Pt reported appetite for solid foods. Pt may benefit from advancement of diet for adequate nutrition. Recommend: low-fat, 2 gm Na diet High Risk; F/U within 2-3 days
--- NOTE | 2019-05-29 18:10 | NUR ---
NOTED PATIENT C/O ANXIETY. VS STABLE. ATIVAN ADMINISTERED ORDERED, RENETTA WELL. ALL NEEDS MET. CONT TO MONITOR
--- NOTE | 2019-05-29 19:10 | NUR ---
OPENING NOTES Bedside report received from dayshift nurse. Patient received in bed, sitting up, talking to family members, AOx4, patient states that she has 8/10 abdominal pain at this time, patient informed that PRN medication will be administered. Breathing is even and unlabored. IVF infusing well, IV site is patent, no signs of infiltration or infection noted. Call light with patient. Will continue to monitor.
--- NOTE | 2019-05-29 19:22 | NUR ---
CLOSING NOTE PATIENT STABLE. AWAKE IN BED TALKING TO DAUGHTER. NO C/O PAIN. NO ACUTE DISTRESS. NO SOB. RESPIRATION EVEN AND UNLABORED. SKIN WARM AND DRY TO TOUCH. ALL NEEDS MET. BED IN LOW AND LOCKED POSITION. SIDERAIL UPX3. CALL LIGHT IN REACH. ENDORSED CARE TO ROSA GANDARA
[2019-05-29 20:00] VITALS: BP_SYST 151
--- NOTE | 2019-05-29 21:30 | NUR ---
ROUNDS Patient in bed, watching TV with family members. No s/s of acute distress noted. Breathing is even and unlabored. IVF infusing well. Call light with patient. Will continue to monitor.
--- NOTE | 2019-05-29 23:35 | NUR ---
PAIN Patient complains of 8/10 abdominal pain. PRN medication to be administered. Call light with patient. Will continue to monitor and reassess.
--- NOTE | 2019-05-30 01:35 | NUR ---
ROUNDS Patient in bed asleep. No s/s of acute distress noted. Breathing even and unlabored. IVF infusing well. Call light with patient. Will continue to monitor.
[2019-05-30] MEDS: LORazepam 2 MG/ML VIAL IVP PRN (02:42)
[2019-05-30] MEDS: D5NS 1,000 ML IV SCH ×2 (02:43→11:49)
[2019-05-30] MEDS: HYDROmorphone 2 MG/ML VIAL IVP PRN ×3 (03:46→12:22)
--- NOTE | 2019-05-30 04:00 | NUR ---
ROUNDS Patient in bed asleep at this time. No signs of discomfort noted. Chest rise and fall even bilaterally. Call light with patient. Will continue to monitor.
[2019-05-30 05:00] VITALS: BP_SYST 145
[2019-05-30] MEDS: PIPERACILLIN/TAZO 3.375/DEX-IS 50 ML IV SCH ×2 (05:15→11:49)
[2019-05-30] MEDS: hydrALAZINE HCL 25 MG TABLET PO SCH ×2 (05:16→13:45)
[2019-05-30] MEDS: cloNIDine HCL 0.2 MG TABLET PO SCH (05:17)
--- NOTE | 2019-05-30 06:54 | NUR ---
CLOSING NOTES Patient in bed asleep at this time. No s/s of acute distress noted. Breathing even and unlabored. IVF infusing well, IV site patent, no signs of infiltration or infection noted. Call light with patient. Bed is locked and at lowest position. Will continue to monitor until patient care is endorsed to oncoming dayshift nurse.
--- NOTE | 2019-05-30 07:30 | NUR ---
INITIAL NOTE PT AWAKE, COMPLAINING OF PAIN IN ABDOMEN, DENIES ANY N/V. IV SITE LEAKING, IV CATHETER CAME OUT. CATHETER REMOVED, NO BLEEDING. NEW IV STARTED ON RIGHT WRIST 22G, INFUSING WELL. CALL LIGHT WITHIN REACH, BED IN LOW AND LOCKED POSITION WITH BED ALARM ON.
[2019-05-30 08:00] VITALS: BP_SYST 147
[2019-05-30] MEDS: PANTOPRAZOLE SODIUM 40 MG/VIAL (PROTONIX) IVP SCH (08:09)
[2019-05-30] MEDS: METOPROLOL TARTRATE 50 MG TABLET PO SCH (08:10)
[2019-05-30] MEDS: amLODIPine BESYLATE 10 MG TABLET PO SCH (08:11)
--- NOTE | 2019-05-30 08:16 | NUR ---
DR. ELIAS/PAIN MEDICATION MD AT BEDSIDE EXAMINING PT. IF PT TOLERATES REGULAR DIET, PT CLEARED BY GI. EDUCATED PT ON USES AND SIDE EFFECTS OF DILAUDED, PT VERBALIZED UNDERSTANDING. PRN DILAUDED ADMINISTERED.
[2019-05-30 08:26] LABS: BASOPHILS % (AUTO) 0.4 % (0.0-2.0); EOSINOPHILS # (AUTO) 0.2 K/uL (0.0-0.4); EOSINOPHILS % (AUTO) 4.6 % (0.0-4.0); HEMATOCRIT 34.4 % (36-48); LYMPHOCYTES # (AUTO) 1.4 K/uL (1.0-5.5); LYMPHOCYTES % (AUTO) 29.5 % (20.5-51.5); MEAN CORPUSCULAR HEMOGLOBIN 33 pg (27-31); MEAN CORPUSCULAR HGB CONC 35 % (32-36); MEAN CORPUSCULAR VOLUME 94 fL (79.0-98.0); MONOCYTES # (AUTO) 0.5 K/uL (0.0-1.0); MONOCYTES % (AUTO) 10.2 % (1.7-9.3); NEUTROPHILS # (AUTO) 2.7 K/uL (1.8-7.7); NEUTROPHILS % (AUTO) 55.3 % (40.0-70.0); PLATELET COUNT (AUTO) 226 K/uL (130-430); RED BLOOD CELL COUNT(AUTO) 3.66 MIL/uL (4.2-6.2); RED CELL DISTRIBUTION WIDTH 12.3 % (9.0-15.0); WHITE BLOOD COUNT (AUTO) 4.9 K/uL (4.8-10.8)
[2019-05-30 09:18] LABS: ANION GAP 2 (5-15); C-REACTIVE PROTEIN QUANT < 0.2 mg/dL (0-0.5); CALCIUM 7.9 mg/dL (8.4-11.0); CHLORIDE 103 mmol/L (98-107); CREATININE 0.88 mg/dL (0.55-1.30); GLUCOSE 119 mg/dL (70-99); POTASSIUM 3.6 mmol/L (3.5-5.1); SODIUM SERUM 135 mmol/L (136-145); UREA NITROGEN, BLOOD 5 mg/dL (8-21)
[2019-05-30 09:23] LABS: GFR AFRICAN AMERICAN 88 mL/min (>90)
--- NOTE | 2019-05-30 09:30 | NUR ---
RN ROUNDS PAIN CONTROLLED AT THIS TIME. REPOSITIONED FOR COMFORT. WILL CONTINUE TO MONITOR.
[2019-05-30 10:10] LABS: ERYTHROCYTE SEDIMENTATION RATE 19 MM/HR (0-20)
--- NOTE | 2019-05-30 11:30 | NUR ---
RN ROUNDS PT AWAKE, SLIGHT DISCOMFORT. DID NOT WANT ANY PAIN MEDS AT THIS TIME. WILL CONTINUE TO MONITOR.
--- NOTE | 2019-05-30 12:09 | NUR ---
PAIN MEDICATIONS PT COMPLAINING OF ABDOMINAL PAIN, EDUCATED PT ON USES AND SIDE EFFECTS OF DILAUDED. PT VERBALIZED UNDERSTANDING. PRN DILAUDED ADMINISTERED.
[2019-05-30 12:35] VITALS: BP_SYST 120
[2019-05-30] MEDS ORDERED: METO-442 PO (12:58)
[2019-05-30] MEDS ORDERED: NOR10 PO (12:58)
[2019-05-30] MEDS ORDERED: HYDR-4272 PO (12:58)
[2019-05-30] MEDS ORDERED: HYDR-4038 PO (12:58)
[2019-05-30] MEDS ORDERED: CAT.2 PO (12:58)
[2019-05-30 13:18] VITALS: BP_SYST 140
--- NOTE | 2019-05-30 13:50 | NUR ---
DISCHARGE DISCHARGE INSTRUCTIONS AND PRESCRIPTIONS GIVEN TO PATIENT. ALL BELONGINGS WITH PATIENT. IV CATHETER REMOVED, CATHETER INTACT, NO BLEEDING. ID HOSPITAL BAND REMOVED. EDUCATED PT ON SAFETY AND USE OF WHEELCHAIR. PT VERBALIZED UNDERSTANDING. AT BEDSIDE. PT AMBULATES WITH STEADY GAIT. ESCORTED PT ON TO HOSPITAL PARKING LOT.
== END 2019-05-30 13:50 | disposition home or self-care (01) | DRG 282 ==
LOC: SED 15:35 → SMU 19:21 → STU 22:20 → SMU 05-27 14:00
PROVIDERS: ADMIT Preventive Medicine Preventive Medicine/Occupational Environmental Medicine; ATTEND Preventive Medicine Preventive Medicine/Occupational Environmental Medicine
DX: K85.90 Acute pancreatitis without necrosis or infection, unspecified (principal); R65.10 Systemic inflammatory response syndrome (SIRS) of non-infectious origin without acute organ dysfunction; D75.1 Secondary polycythemia; E88.09 Other disorders of plasma-protein metabolism, not elsewhere classified; E83.52 Hypercalcemia; F10.10 Alcohol abuse, uncomplicated; E87.1 Hypo-osmolality and hyponatremia; E66.9 Obesity, unspecified; E87.6 Hypokalemia; I10 Essential (primary) hypertension; K86.1 Other chronic pancreatitis; G89.29 Other chronic pain; R73.9 Hyperglycemia, unspecified; Z60.2 Problems related to living alone; Z90.49 Acquired absence of other specified parts of digestive tract; Z98.82 Breast implant status; Z88.8 Allergy status to other drugs, medicaments and biological substances; Z68.35 Body mass index [BMI] 35.0-35.9, adult; Z79.899 Other long term (current) drug therapy; Z71.41 Alcohol abuse counseling and surveillance of alcoholic
CPT/HCPCS: 36415; 71045; 74181; 80048; 80053; 80061; 80307; 81003; 82150-TC; 82787; 82962; 83605; 83690-TC; 83735-TC; 84100-TC; 85025; 85610-TC; 85651-TC; 86038; 86140; 87040-TC; 93005; 99285; C9113; G0378; J1170; J1200; J2060; J2270; J2405; J2543; J3480; J3490; J7042; J7050